=== PATIENT | female | born 1985 | race Caucasian/White ===

== ENCOUNTER 2019-05-14 17:46 | Emergency (ER) | payer OTHER, SELFPAY ==
[2019-05-14 17:54] VITALS: BP 153/64; PULSE 117; RESP 22; TEMP 38.6; O2SAT 100
--- NOTE | 2019-05-14 18:35 | ED.GENADULT ---
HPI - General Adult General Chief complaint: Upper Respiratory Infection Stated complaint: cough/difficulty breathing/mucus/jackson Time Seen by Provider: 05/14/19 18:29 Source: patient and RN notes reviewed Mode of arrival: ambulatory Limitations: no limitations History of Present Illness HPI narrative: 34-year-old female with complaints of upper respiratory infection symptoms, sore throat, hoarsness, bilateral otalgia and itching, tactile fever, cough, and intermittent headache (not the worst of her life) for 1 day. Advil (last @ 13:00) with some relief. Dry cough with intermittent productive cough (yellow-brown phlegm). Rhinorrhea and nasal congestion. No exacerbating factors. Tactile fevers with intermittent chills. No nausea, vomiting, and abdominal pain. Denies chest pain, dyspnea, coughing up blood, difficulty swallowing, jaw pain, dental pain, facial pain, foreign body sensation, and rash. Some parts of this dictation were generated by voice recognition software and may contain typographical and/or grammatical inaccuracies. Related Data Home Medications Medication Instructions Recorded Confirmed levothyroxine 175 mcg PO DAILY 05/14/19 05/14/19 lisinopril 10 mg PO BID 05/14/19 05/14/19 lovastatin 10 mg PO DAILY 05/14/19 05/14/19 Allergies Allergy/AdvReac Type Severity Reaction Status Date / Time adhesive Allergy Unknown RASH Verified 05/14/19 18:03 latex Allergy Unknown RASH Verified 05/14/19 18:03 Cas[place] Allergy Unknown FACIAL Uncoded 12/09/15 19:08 SWELLING, DIFFICULTY BREATHING Review of Systems Review of Systems: Narrative: CONSTITUTIONAL: Complains of tactile fever, chills. Denies sweats. EYES: Denies visual changes, redness, discharge. ENT: Complains of rhinorrhea, congestion, sore throat, bilateral otalgia. CARDIOVASCULAR: Denies chest pain, palpitations, edema. RESPIRATORY: Denies dyspnea, wheezing. Complains of dry cough, intermittent productive cough. GASTROINTESTINAL: Denies abdominal pain, nausea, vomiting, diarrhea. GENITOURINARY: Denies dysuria, hematuria, abnormal discharge. SKIN: Denies rash or itching. MUSCULOSKELETAL: Denies acute back pain, joint pain, myalgia. NEUROLOGIC: Denies numbness or focal weakness. Complains of intermittent JACKSON. PSYCHIATRIC: Denies anxiety or depression. All systems reviewed & are unremarkable except as noted in HPI and below PMFSH Past Medical History Medical History (Updated 05/14/19 @ 23:22 by SINDI Ford) Episode of syncope History of PCOS Hypercholesteremia Hypertension Hypothyroidism Sleep apnea Surgical History Surgical History (Updated 05/14/19 @ 23:22 by SINDI Ford) History of cholecystectomy History of tonsillectomy Family History Family History (Updated 05/14/19 @ 23:25 by SINDI Ford) Mother Heart disease Hypertension Acute myocardial infarction Grandparent Lung cancer Social History Social History (Updated 05/14/19 @ 23:25 by SINDI Ford) Smoking status: Never smoker Second hand tobacco smoke exposure: No Alcohol intake: never Substance use: never Living arrangements: with family Occupation/Education: occupation Gender identity (if verbalized by the patient): Female Comments At time of signature, agree with nurse past medical, surgical, social, and family history. There is no relevant family history pertinent to the presenting complaint. Exam Narrative: Exam Narrative: GENERAL: This is a well-nourished, well-developed patient, in no apparent distress. Speaks in full sentences and ambulates with steady gait without dyspnea. HEAD: normocephalic, atraumatic. EYES: PERRL. Sclera clear/white. Vision is grossly intact. EARS: External ears normal, auditory canals clear and without drainage, TMs normal without perforation. Hearing grossly intact. NOSE: External nose normal with no obvious nasal discharge, nares with mild redness and enlarged tu
[2019-05-14] MEDS: ACETAMINOPHEN 500 MG TABLET 1000 MG PO (18:49)
== END 2019-05-14 18:45 | disposition home or self-care (01) ==
PROVIDERS: Emergency Provider Nurse Practitioner Family
DX: J06.9 Acute upper respiratory infection, unspecified (principal); E28.2 Polycystic ovarian syndrome; E78.00 Pure hypercholesterolemia, unspecified; I10 Essential (primary) hypertension; E03.9 Hypothyroidism, unspecified; G47.30 Sleep apnea, unspecified
CPT/HCPCS: 87804; 99203; A9270; G0463